=== PATIENT | female | born 1980 | race Caucasian/White ===

== ENCOUNTER 2024-05-16 13:49 | Emergency (ER) | payer SELFPAY ==
[2024-05-16 13:53] VITALS: BP 150/90; PULSE 79; RESP 16; TEMP 36.7; O2SAT 97; BMI 21.7
--- NOTE | 2024-05-16 14:05 | ED_ITS ---
Discharge Plan Disposition Patient Disposition: Home, Self-Care Referrals Follow up/Referrals: Stanislaw Barreto MD [Physician] - See instructions Provider,MD Prosper [Primary Care Provider] - See instructions Activity Restrictions/Add. Instructions Additional Instructions/Restrictions: At this time it was felt you are safe to be discharged home. If new or worsening symptoms please do not hesitate to return the emergency department. Please take antibiotics as prescribed and call and schedule an appointment with Dr. Barreto as soon as you are able to. Clinical Impressions Clinical Impression: Sinusitis Instructions Patient Instructions: DI for Sinusitis Discharge ED Provider: Trevor Mora General Adult HPI General Chief complaint: Upper Respiratory Infection Stated complaint: Nasal congestion smell dizziness nausea abd cramp Time Seen by Provider: 05/16/24 13:50 History of Present Illness HPI narrative: Patient is a 43-year-old female with past medical history of tooth extraction with subsequent fistula formation into her right maxillary sinus who presents emergency department for evaluation of right maxillary sinus pressure and pain. She feels generally unwell, onset was acute, over the last 1 and half weeks, generally feeling unwell as well as malodorous discharge, down the back of her throat through her nose. No chest pain or vision changes reported. Slight cough. She had a right maxillary tooth extracted approximately 2 months ago which caused the symptoms. No other acute complaints at this time. [facility] Disclaimer: The information contained in this section may have been updated after the patient was seen, as this information can be updated by other users. Social History Smoking Status: Never smoker alcohol intake: never current occupational status: employed Travel in the last 8 weeks: None ROS Obtained: Yes Systems reviewed as appropriate & no additional complaints except as documented Physical Exam General General appearance: alert and in no apparent distress Head Head exam: atraumatic and normocephalic Eye Eye exam: Present PERRL and EOMI ENT ENT exam: Present normal oropharynx (Slightly erythematous posterior oropharynx, uvula midline, no asymmetric swelling of the palatine tonsils.), mucous membranes moist and TM's normal bilaterally Neck Neck exam: Present normal inspection Chest Chest inspection: Present normal inspection and symmetric chest wall rise Respiratory Respiratory exam: Present normal lung sounds bilaterally; Absent respiratory distress, wheezes, stridor or accessory muscle use Cardiovascular Cardiovascular exam: Present regular rate and normal rhythm Abdominal Exam Abdominal exam: Present soft Extremities Exam Extremities exam: Present normal inspection Neurological Exam Neurological exam: Present alert, oriented X3 and CN II-XII intact; Absent motor sensory deficit Psychiatric Psychiatric exam: Present normal affect Skin Skin exam: Present warm and dry Medical Decision Making Jad Inquiry Pt receiving controlled substance: No Vital Signs: 05/16/24 13:53 Temperature 98.1 F Temperature Source Oral Pulse Rate [Right] 79 Respiratory Rate 16 Blood Pressure [Right Arm] 150/90 H Blood Pressure Mean [Right Arm] 110 02 Sat by Pulse Oximetry 97 Oxygen Delivery Method Room Air Medical Decision Narrative: In summary patient is a 43-year-old female past medical history described above who presents emergency department for evaluation of sinus pressure and generally feeling unwell with slight associated cough. Patient is hemodynamically stable nontoxic-appearing upon arrival, afebrile. She is clear to auscultation all lung nuñez, nontachycardic, no fever. With expected cough no further workup or imaging is indicated at this time. With the specter of facial pressure malodorous subjective drainage down the back of her throat it is possible that she has sinusitis. Given that his has been going on for greater than 10 days Augmentin is reasonable. She does not have a sinus tract into her mouth, has no facial plethora or limited range of motion that would be suspicious for tracking infection that would warrant imaging. Nonfocal neurologic exam. Differential includes sinusitis, viral respiratory infection, among others. Given this patient is appropriate for discharge without workup and will be treated empirically with Augmentin will be referred to ear nose and throat Dr. Barreto for continued evaluation. Critical Care Critical Care Time Critical Care Time: No
[2024-05-16 14:15] VITALS: BP 143/90; PULSE 81; RESP 16; TEMP 36.7; O2SAT 97
== END 2024-05-16 14:25 | disposition home or self-care (01) ==
LOC: ER 14:19
PROVIDERS: Emergency Provider Emergency Medicine
DX: J01.00 Acute maxillary sinusitis, unspecified (principal); R09.82 Postnasal drip; R05.9 Cough, unspecified
CPT/HCPCS: 99283

== ENCOUNTER 2024-09-07 11:20 | Emergency (ER) | payer BC, SELFPAY ==
[2024-09-07 11:36] VITALS: BP 153/97; PULSE 77; RESP 16; TEMP 36.7; O2SAT 98; BMI 23.6
--- NOTE | 2024-09-07 11:52 | EXP.UTC ---
Discharge Plan Disposition Patient Disposition: Home, Self-Care Condition: Good Prescriptions Prescriptions: New oseltamivir [Tamiflu] 75 mg capsule 75 mg PO DAILY 7 Days Qty: 7 0RF No Action amoxicillin-pot clavulanate 875-125 mg tablet 1 tab PO BID Qty: 20 0RF Referrals Follow up/Referrals: Provider,Referral, MD [Primary Care Provider] - See instructions Activity Restrictions/Add. Instructions Additional Instructions/Restrictions: *Monitor Temp, Over the counter Motrin or Tylenol as directed/as needed Tylenol every 4 hours and Motrin every 6 hours (as long as your family doctor has told you that you can take it) for fever or pain. and straight to ER if unable to lower temp less than 101.0 after medication given *Warm salt water gargles may help to soothe the throat *Throat Lozenges? *Warm fluids like tea with honey may help to soothe the throat? *Sleep elevated *Humidifier/Vaporizer Follow up IMMEDIATELY for new or worsening symptoms or no Noticeable improvement over the next 48-72 hours. 911 for difficulty breathing or swallowing Clinical Impressions Clinical Impression: Exposure to the flu Instructions Patient Instructions: DI for Influenza -- Adult, How to Avoid a Cold or Flu Print Language Print Language: German Discharge ED Provider: Keyanna Gilman [facility] [place] HPI General Stated complaint: flu exposure Mode of Arrival: Ambulatory Source of Information: Patient Limitations: No Limitations Time Seen by Provider: 09/07/24 11:52 Description of Symptoms (Recalled from Triage Doc. by RN): Patient reports being exposed to the flu. States she has body aches and that's all. HEENT Symptoms (Recalled from RN notes): No Resp Symptoms (Recalled from RN notes): No Skin Symptoms (Recalled from RN notes): No MS Symptoms (Recalled from RN notes): No Functional Status (Recalled from RN notes): wnl History of Present Illness Provider Complaint: Patient states that she has been exposed to flu by several people at work States she started having body aches, and chills so she came in to get checked and wanting to get the prophylactic tamiflu if possible due to known exposure Related Data Previous Rx's ?Medication ?Instructions ?Recorded amoxicillin 875 mg-potassium 1 tab PO BID sinusitis #20 tabs 05/16/24 clavulanate 125 mg tablet oseltamivir 75 mg capsule (Tamiflu) 75 mg PO DAILY 7 days #7 caps 09/07/24 Allergies Allergy/AdvReac Type Severity Reaction Status Date / Time ciprofloxacin [From Cipro] Allergy Verified 05/16/24 14:14 Worker's Comp Is this a Worker's Comp case?: No PFSH [facility] Disclaimer: The information contained in this section may have been updated after the patient was seen, as this information can be updated by other users. Social History (Updated 05/16/24 @ 14:14 by Trevor Mora MD) Smoking Status: Never smoker alcohol intake: never current occupational status: employed Travel in the last 8 weeks: None ROS Obtained: Yes All systems reviewed & no additional complaints except as documented and Yes Systems reviewed as appropriate & no additional complaints except as documented Constitutional Constitutional: Reports system reviewed and no additional complaints, except as documented, Reports as per HPI, Reports body ache and Reports chills ENT Ears, Nose, Mouth, and Throat: Reports system reviewed and no additional complaints, except as documented and Reports as per HPI Cardiovascular Cardiovascular: Reports system reviewed and no additional complaints, except as documented and Reports as per HPI Respiratory Respiratory: Reports system reviewed and no additional complaints, except as documented and Reports as per HPI Gastrointestinal Gastrointestingal: Reports system reviewed and no additional complaints, except as documented and as per HPI Physical Exam General General appearance: alert and in no apparent distress ENT ENT exam: Present mucous membranes moist Respiratory Respiratory exam: Present normal lung sounds bilaterally; Absent respiratory distress or wheezes Cardiovascular Cardiovascular exam: Present regular rate, normal rhythm and normal heart sounds Neurological Exam Neurological exam: Present alert, oriented X3 and normal gait Medical Decision Making Medical Records Screening: Per USPSTF and CDC recommendations, given the prevalence of disease in our region, it is our hospital?s policy to screen for HIV and viral Hepatitis for all patients aged 18 and over and those with ongoing risk factors. Jad Inquiry Pt receiving controlled substance: No Jad was queried for this patient: No Vital Signs: 09/07/24 11:36 Temperature 98.1 F Temperature Source Oral Pulse Rate [Radial] 77 Respiratory Rate 16 Blood Pressure [Right Arm] 153/97 H Blood Pressure Mean [Right Arm] 115 Blood Pressure Source [Right Arm] Automatic Cuff Blood Pressure Position [Right Arm] Sitting 02 Sat by Pulse Oximetry 98 Oxygen Delivery Method Room Air Lab Data Lab results reviewed: Yes I reviewed the patient's lab results.
[2024-09-07 12:03] LABS: UTC Influenza A Antigen Negative (Negative)
[2024-09-07 12:04] LABS: UTC Influenza B Antigen Negative (Negative)
[2024-09-07 12:12] VITALS: BP 153/97; PULSE 77; RESP 16; TEMP 36.7; O2SAT 98
== END 2024-09-07 12:13 | disposition home or self-care (01) ==
PROVIDERS: Emergency Provider Nurse Practitioner
DX: M79.10 Myalgia, unspecified site (principal)
CPT/HCPCS: 87804; 99213; G0381

== ENCOUNTER 2025-07-06 18:28 | Emergency (ER) | payer SELFPAY ==
--- NOTE | 2025-07-06 18:29 | ECG_ITS ---
APPROVED REPORT Exam: Resting ECG HR:84 bpm ECG Measurements Heart Rate 84 AXES OR 155 P 68 QRSd 101 QRS 64 QT 365 T 32 QTc 405 Conclusion Normal sinus rhythm without acute ST or T wave changes concerning for ischemia Electronically signed by : Mackenzie Aguilar, 07/07/2025 00:17:24
[2025-07-06 18:31] VITALS: BP 162/102; PULSE 86; PULSE 90; RESP 20; TEMP 36.9; O2SAT 98; BMI 20.9
--- NOTE | 2025-07-06 18:37 | XR_ITS ---
PROCEDURE INFORMATION: Exam: XR Chest Exam date and time: 07/06/2025 6:54 PM Age: 45 years old Clinical indication: Shortness of breath; Additional info: Short of breath TECHNIQUE: Imaging protocol: Radiologic exam of the chest. Views: 1 view. COMPARISON: No relevant prior studies available. FINDINGS: Lungs: Unremarkable. No consolidation. Pleural spaces: Unremarkable. No pleural effusion. No pneumothorax. Heart/Mediastinum: Unremarkable. No cardiomegaly. Bones/joints: Unremarkable. IMPRESSION: No acute findings.
--- NOTE | 2025-07-06 18:40 | ED_ITS ---
Discharge Plan Disposition Patient Disposition: Home, Self-Care Condition: Good Prescriptions Prescriptions: No Action amoxicillin-pot clavulanate 875-125 mg tablet 1 tab PO BID Qty: 30 0RF Referrals Follow up/Referrals: Provider,Referral, [Primary Care Provider, Medical] - See instructions Activity Restrictions/Add. Instructions Additional Instructions/Restrictions: Establish care with a primary care provider. Return to the emergency department if you have any significant chest pain, shortness of breath or any other symptoms that are concerning to you. Clinical Impressions Clinical Impression: Chest pain Print Language Print Language: Scottish Discharge ED Provider: Mackenzie Aguilar General Adult HPI <Brit Yan (ED), AIR BRAKE OPERATOR - Last Filed: 07/07/25 13:49> General Chief complaint: Chest Pain Stated complaint: chest pain Time Seen by Provider: 07/06/25 18:35 Mode of Arrival: Ambulatory Source of Information: Patient Description of Symptoms (Recalled from ER Triage Doc. by RN): pt reports having initia; chest pain on saturday that woke her up form her sleep. had another episode today @1800. got dizzy and said the pain radiated up into her neck and shoulder. takes no meds. History of Present Illness HPI narrative: 45-year-old female presents to the ED today for complaint of chest pain that started on Saturday and had another episode today. She says that the episode today took her breath and made her dizzy. She says it also radiated into her collarbone. Says that she occasionally sees black spots in her vision for a few seconds. She does have chest pain now but it is not as bad as it was earlier today and on Saturday. She was not doing any kind of strenuous work when it happened. She does complain of shortness of air both now and with each episode of chest pain. She is a 1 pack/day smoker and a drinker. She has no heart history that she is aware of although her mom had mitral valve prolapse and said that she may have that. She has had some nausea no vomiting and had diarrhea for couple days. Patient has not seen a PCP in years. She has lived here for 6 years and not seen a PCP since she has moved here. Related Data Previous Rx's ?Medication ?Instructions ?Recorded amoxicillin 875 mg-potassium 1 tab PO BID #30 tabs clavulanate 125 mg tablet Allergies Allergy/AdvReac Type Severity Reaction Status Date / Time ciprofloxacin (From Cipro) Allergy Verified 02/01/25 11:18 PFSH <Brit Yan (ED), AIR BRAKE OPERATOR - Last Filed: 07/07/25 13:49> PFS Disclaimer: The information contained in this section may have been updated after the patient was seen, as this information can be updated by other users. Medical History (Updated 07/06/25 @ 23:07 by Mackenzie Aguilar DO) Chronic eczematous otitis externa of both ears Recurrent maxillary sinusitis Surgical History H/O rhinoplasty Social History Smoking Status: Current every day smoker alcohol intake: never current occupational status: employed Travel in the last 8 weeks?: None Have you lived/traveled outside US in past 30 days?: No Contact w/someone who lives/traveled outside US past 30 days?: No Exposure to someone with infectious disease in past 14 days?: No Do you have a fever (greater than 100.4 F or 38 C)?: No Have you tested positive for COVID-19?: No Exposed to someone with COVID-19 in past 14 days?: No Do you have a sore throat?: No Do you have a cough?: No Do you have any weakness?: No Do you have any diarrhea?: No Are you experiencing any unusual bleeding?: No Do you have any muscle aches/pain?: No Do you have any abdominal pain?: No Are you experiencing loss of taste or smell?: No Other Medical History Have you received the Pneumonia Vaccine: No <Brit Yan (ED), AIR BRAKE OPERATOR - Last Filed: 07/07/25 13:49> ROS Obtained: Yes Systems reviewed as appropriate & no additional complaints except as documented Constitutional Constitutional: Reports as per HPI Physical Exam <Brit Yan (ED), AIR BRAKE OPERATOR - Last Filed: 07/07/25 13:49> General General appearance: alert and anxious Head Head exam: normocephalic Eye Eye exam: Present PERRL ENT ENT exam: Present mucous membranes moist Neck Neck exam: Present trachea midline Respiratory Respiratory exam: Present normal lung sounds bilaterally Cardiovascular Cardiovascular exam: Present regular rate, normal rhythm, normal heart sounds, +S1 and +S2 Abdominal Exam Abdominal exam: Present soft and normal bowel sounds Extremities Exam Extremities exam: Present full ROM Neurological Exam Neurological exam: Present alert and oriented X3 Psychiatric Psychiatric exam: Present anxious Skin Skin exam: Present warm and dry Medical Decision Making <Brit Yan (ED), AIR BRAKE OPERATOR - Last Filed: 07/07/25 13:49> Medical Records Screening: Per USPSTF and CDC recommendations, given the prevalence of disease in our region, it is our hospital?s policy to screen for HIV and viral Hepatitis for all patients aged 18 and over and those with ongoing risk factors. Jad Inquiry Pt receiving controlled substance: No Jad was queried for this patient: No Vital Signs: 07/06/25 18:31 07/06/25 18:31 07/06/25 19:30 Temperature 98.4 F Temperature Source Oral Pulse Rate 86 77 Pulse Rate [Right] 90 Respiratory Rate 20 15 Blood Pressure 162/102 H 132/93 H Blood Pressure [Right Arm] 162/102 H Blood Pressure Mean [Right Arm] 122 Blood Pressure Position 02 Sat by Pulse Oximetry 98 98 97 Oxygen Delivery Method Room Air 07/06/25 22:00 07/06/25 22:45 07/06/25 23:16 Temperature 97.8 F Temperature Source Oral Pulse Rate 75 64 64 Pulse Rate [Right] Respiratory Rate 13 13 16 Blood Pressure 130/68 130/68 Blood Pressure [Right Arm] Blood Pressure Mean [Right Arm] Blood Pressure Position Supine 02 Sat by Pulse Oximetry 97 96 Oxygen Delivery Method Room Air Lab Data Lab Results 07/06/25 18:40: WBC 6.3, RBC 3.99 L, Hgb 13.4 L, Hct 39.4 L, MCV 98.7 H, MCH 33.6 H, MCHC 34.0, RDW 12.8, Plt Count 282, MPV 9.3, Neut % (Auto) 54.6, Lymph % (Auto) 31.4, Tyrrell % (Auto) 10.5 H, Eos % (Auto) 2.2, Baso % (Auto) 1.0, Neut # (Auto) 3.5, Lymph # (Auto) 2.0, Tyrrell # (Auto) 0.7, Eos # (Auto) 0.1, Baso # (Auto) 0.1, D-Dimer 0.62 H, Sodium 134 L, Potassium 3.8, Chloride 100, Carbon Dioxide 26, Anion Gap 11.8, BUN 11, Creatinine 0.80, Estimated Creat Clear 118, Estimated GFR 106, Est GFR ( Amer) 128, Glucose 85, Calcium 9.5, Magnesium 2.1, Total Bilirubin 0.5, AST 74 H, ALT 55, Alkaline Phosphatase 103, Troponin I < 0.01, Total Protein 8.3 H, Albumin 4.3, Globulin 4.0 H, Albumin/Globulin Ratio 1.1, Lipase 102, HCV Ab VINCENT w/Rflx PCR Qn Negative, HIV Ag/Ab Combo Qual Negative 07/06/25 21:40: Troponin I < 0.01 07/06/25 18:40 07/06/25 18:40 Orders (Tests/Meds): ED MEDICATIONS Discontinued Medications Generic Name Dose Route Start Last Admin Trade Name Freq PRN Reason Stop Dose Admin Aspirin 325 mg 07/06/25 18:44 07/06/25 18:47 Aspirin 325mg Tablet PO 07/06/25 18:45 325 mg ONCE ONE Administration Famotidine 20 mg 07/06/25 18:36 07/06/25 18:45 Famotidine 20mg/2ml Vial IV 07/06/25 18:37 20 mg ONCE ONE Administration Iopamidol 80 ml 07/06/25 20:01 07/06/25 20:02 Iopamidol-370 (76%);100ml Bottle IV 07/06/25 20:02 80 ml ONCE ONE Administration Sodium Chloride 8 ml 07/06/25 18:36 Sodium Chloride 0.9% 10ml Vial IV 08/05/25 18:35 NEEDED PRN dilute pepcid Sodium Chloride 50 ml 07/06/25 20:01 07/06/25 20:02 0.9 % Sodium Chloride 50 Ml Vial IV 07/06/25 20:02 50 ml ONCE ONE Administration Sodium Chloride 10 ml 07/06/25 20:01 07/06/25 20:02 Sodium Chloride 0.9% 10ml Syr (Rad Only) IV 08/05/25 20:00 10 ml NEEDED PRN Administration Maintain IV Site ORDERS Category Date Time Status CTA Chest [CT angio chest PE protocol] Stat Cat Scan 07/06/25 19:49 Completed Chest XR -- portable [XR chest portable] Stat Exams 07/06/25 18:37 Completed CBC [Complete Blood Count Auto Diff] Stat Lab 07/06/25 18:40 Completed Comprehensive Metabolic Panel Stat Lab 07/06/25 18:40 Completed D-Dimer Stat Lab 07/06/25 18:40 Completed HIV Combo Stat Lab 07/06/25 18:40 Completed Hepatitis C Ab Qual. W/ RFX Stat Lab 07/06/25 18:40 Completed Lipase Stat Lab 07/06/25 18:40 Completed Magnesium Stat Lab 07/06/25 18:40 Completed Trop I [Troponin I] Stat Lab 07/06/25 18:40 Completed Troponin I Q3H Lab 07/06/25 21:40 Completed HEART Score History (anamnesis): Slightly suspicious ECG: Normal Age: <45 years Risk factors: 1-2 risk factors Troponin: </= normal limit HEART Score: 1 Medical Decision Narrative: patient is a 45-year-old female presenting to the emergency department for evaluation of chest pain and shortness of breath for the last couple days. Patient is hemodynamically stable and nontoxic-appearing upon arrival, afebrile. Differential diagnosis includes chest pain, ACS, pancreatitis, reflux, among others. Workup will be conducted with hematologic labs, specific imaging. Initial inventions include analgesics. Initial workup reviewed by me hematologic labs are remarkable for elevated D- dimer at 0.62. So I did order a CTA which was negative for PE. Formal imaging read remarkable for no PE. We are awaiting her second troponin to be drawn. Troponin has been drawn updated patient on results so far. Dr. Aguilar has been updated on patient and she will overtake patient as I am leaving. <Mackenzie Aguilar, DO - Last Filed: 07/08/25 15:57> Vital Signs: 07/06/25 18:31 07/06/25 18:31 07/06/25 19:30 Temperature 98.4 F Temperature Source Oral Pulse Rate 86 77 Pulse Rate [Right] 90 Respiratory Rate 20 15 Blood Pressure 162/102 H 132/93 H Blood Pressure [Right Arm] 162/102 H Blood Pressure Mean [Right Arm] 122 Blood Pressure Position 02 Sat by Pulse Oximetry 98 98 97 Oxygen Delivery Method Room Air 07/06/25 22:00 07/06/25 22:45 07/06/25 23:16 Temperature 97.8 F Temperature Source Oral Pulse Rate 75 64 64 Pulse Rate [Right] Respiratory Rate 13 13 16 Blood Pressure 130/68 130/68 Blood Pressure [Right Arm] Blood Pressure Mean [Right Arm] Blood Pressure Position Supine 02 Sat by Pulse Oximetry 97 96 Oxygen Delivery Method Room Air Lab Data Lab Results 07/06/25 18:40: WBC 6.3, RBC 3.99 L, Hgb 13.4 L, Hct 39.4 L, MCV 98.7 H, MCH 33.6 H, MCHC 34.0, RDW 12.8, Plt Count 282, MPV 9.3, Neut % (Auto) 54.6, Lymph % (Auto) 31.4, Tyrrell % (Auto) 10.5 H, Eos % (Auto) 2.2, Baso % (Auto) 1.0, Neut # (Auto) 3.5, Lymph # (Auto) 2.0, Tyrrell # (Auto) 0.7, Eos # (Auto) 0.1, Baso # (Auto) 0.1, D-Dimer 0.62 H, Sodium 134 L, Potassium 3.8, Chloride 100, Carbon Dioxide 26, Anion Gap 11.8, BUN 11, Creatinine 0.80, Estimated Creat Clear 118, Estimated GFR 106, Est GFR ( Amer) 128, Glucose 85, Calcium 9.5, Magnesium 2.1, Total Bilirubin 0.5, AST 74 H, ALT 55, Alkaline Phosphatase 103, Troponin I < 0.01, Total Protein 8.3 H, Albumin 4.3, Globulin 4.0 H, Albumin/Globulin Ratio 1.1, Lipase 102, HCV Ab VINCENT w/Rflx PCR Qn Negative, HIV Ag/Ab Combo Qual Negative 07/06/25 21:40: Troponin I < 0.01 Orders (Tests/Meds): ED MEDICATIONS Discontinued Medications Generic Name Dose Route Start Last Admin Trade Name Freq PRN Reason Stop Dose Admin Aspirin 325 mg 07/06/25 18:44 07/06/25 18:47 Aspirin 325mg Tablet PO 07/06/25 18:45 325 mg ONCE ONE Administration Famotidine 20 mg 07/06/25 18:36 07/06/25 18:45 Famotidine 20mg/2ml Vial IV 07/06/25 18:37 20 mg ONCE ONE Administration Iopamidol 80 ml 07/06/25 20:01 08/05/25 20:02 Iopamidol-370 (76%);100ml Bottle IV 07/06/25 20:02 80 ml ONCE ONE Administration Sodium Chloride 8 ml 07/06/25 18:36 Sodium Chloride 0.9% 10ml Vial IV 08/05/25 18:35 NEEDED PRN dilute pepcid Sodium Chloride 50 ml 07/06/25 20:01 07/06/25 20:02 0.9 % Sodium Chloride 50 Ml Vial IV 07/06/25 20:02 50 ml ONCE ONE Administration Sodium Chloride 10 ml 07/06/25 20:01 07/06/25 20:02 Sodium Chloride 0.9% 10ml Syr (Rad Only) IV 08/05/25 20:00 10 ml NEEDED PRN Administration Maintain IV Site ORDERS Category Date Time Status CTA Chest [CT angio chest PE protocol] Stat Cat Scan 07/06/25 19:49 Completed Chest XR -- portable [XR chest portable] Stat Exams 07/06/25 18:37 Completed CBC [Complete Blood Count Auto Diff] Stat Lab 07/06/25 18:40 Completed Comprehensive Metabolic Panel Stat Lab 07/06/25 18:40 Completed D-Dimer Stat Lab 07/06/25 18:40 Completed HIV Combo Stat Lab 07/06/25 18:40 Completed Hepatitis C Ab Qual. W/ RFX Stat Lab 07/06/25 18:40 Completed Lipase Stat Lab 07/06/25 18:40 Completed Magnesium Stat Lab 07/06/25 18:40 Completed Trop I [Troponin I] Stat Lab 07/06/25 18:40 Completed Troponin I Q3H Lab 07/06/25 21:40 Completed HEART Score HEART Score: 1 Medical Decision Narrative: patient is a 45-year-old female presenting to the emergency department for evaluation of chest pain and shortness of breath for the last couple days. Patient is hemodynamically stable and nontoxic-appearing upon arrival, afebrile. Differential diagnosis includes chest pain, ACS, pancreatitis, reflux, among others. Workup will be conducted with hematologic labs, specific imaging. Initial inventions include analgesics. Initial workup reviewed by me hematologic labs are remarkable for elevated D- dimer at 0.62. So I did order a CTA which was negative for PE. Formal imaging read remarkable for no PE. We are awaiting her second troponin to be drawn. Troponin has been drawn updated patient on results so far. Dr. Aguilar has been updated on patient and she will overtake patient as I am leaving. Mackenzie Aguilar, DO I assumed care of this patient at 2200. Patient's second troponin was less than 0.01. On reassessment, patient had no chest pain. At this time, I felt that patient was stable and appropriate for discharge home. Return precautions were discussed. Critical Care <Brit Yan (ED), AIR BRAKE OPERATOR - Last Filed: 07/07/25 13:49> Critical Care Time Critical Care Time: No
[2025-07-06] MEDS: FAMOTIDINE 20MG/2ML VIAL 20 MG IV (18:45)
[2025-07-06] MEDS: ASPIRIN 325MG TABLET 325 MG PO (18:47)
[2025-07-06 18:49] LABS: Hematocrit 39.4 % (42.0-52.0); Hemoglobin 13.4 g/dL (14.1-18.0); Immature Granulocytes % 0.3 %; Mean Corpuscular HGB Conc 34.0 g/dL (31.8-35.4); Mean Corpuscular Hemoglobin 33.6 pg (27.0-31.2); Mean Corpuscular Volume 98.7 fl (80-94); Nucleated Red Blood Cells % 0 %; Platelet Count 282 K/mm3 (142-424); Red Blood Count 3.99 M/mm3 (4.60-6.20); Red Cell Distribution Width-SD 46.6 fL; White Blood Count 6.3 K/mm3 (4.8-10.8)
[2025-07-06 19:09] LABS: Albumin Level 4.3 g/dl (3.5-5.0); Chloride 100 mmol/L (98-107); Potassium 3.8 mmoL/L (3.5-5.1); Sodium 134 mmol/L (136-145)
[2025-07-06 19:11] LABS: Blood Urea Nitrogen 11 mg/dl (9-20); Creatinine Clearance Estimated 118 mL/min (50-200); Creatinine,Serum 0.80 mg/dl (0.66-1.25); Estimated Glomerular Filt Rate 106 ml/min (>60); GFR (African American) 128 ML/MIN (>60)
[2025-07-06 19:12] LABS: Alanine Aminotransferase 55 U/L (12-78); Albumin/Globulin Ratio 1.1 (1.1-1.8); Alkaline Phosphatase 103 U/L (38-126); Anion Gap 11.8 mEq/L (5-15); Aspartate Amino Transferase 74 U/L (17-59); Bilirubin,Total 0.5 mg/dl (0.2-1.3); Calcium 9.5 mg/dl (8.4-10.2); Carbon Dioxide 26 mmol/L (22.0-30.0); Globulin 4.0 g/dL (1.3-3.2); Glucose 85 mg/dl (74-100); Lipase 102 U/L (23-300); Magnesium 2.1 mg/dl (1.6-2.3); Total Protein,Serum 8.3 g/dl (6.3-8.2)
[2025-07-06 19:17] LABS: D-Dimer 0.62 ug/mL (0.0-0.5)
[2025-07-06 19:30] VITALS: BP 132/93; PULSE 77; RESP 15; O2SAT 97
[2025-07-06 19:45] LABS: Troponin I < 0.01 ng/ml (0.00-0.034)
--- NOTE | 2025-07-06 19:49 | CT_ITS ---
PROCEDURE INFORMATION: Exam: CTA Chest Without And With Contrast Exam date and time: 07/06/2025 7:59 PM Age: 45 years old Clinical indication: Shortness of breath TECHNIQUE: Imaging protocol: Computed tomographic angiography of the chest without and with contrast. Exam focused on the arteries. 3D rendering (Not supervised by radiologist): MIP and/or 3D reconstructed images were created by the technologist. Radiation optimization: All CT scans at this facility use at least one of these dose optimization techniques: automated exposure control; mA and/or kV adjustment per patient size (includes targeted exams where dose is matched to clinical indication); or iterative reconstruction. Contrast material: ISOVUE; Contrast volume: 80 ml; Contrast route: INTRAVENOUS (IV); COMPARISON: CR XR CHEST PORTABLE 07/06/2025 6:54 PM FINDINGS: Pulmonary arteries: No CT angiography evidence of pulmonary embolism. Aorta: Unremarkable. No aortic aneurysm. No aortic dissection. Lungs: Left lower lobe calcified nodule compatible with prior granulomatous process. Pleural spaces: Unremarkable. No pneumothorax. No pleural effusion. Heart: Unremarkable. No cardiomegaly. No pericardial effusion. Lymph nodes: Left hilar and subcarinal calcified nodes compatible with prior granulomatous process. Bones/joints: Unremarkable. No acute fracture. Soft tissues: Unremarkable. IMPRESSION: No CT angiography evidence of pulmonary embolism.
[2025-07-06 20:00] LABS: Hepatitis C Ab Qual. W/ RFX NEGATIVE (Negative)
[2025-07-06] MEDS: IOPAMIDOL-370 (76%);100ML BOTTLE 80 ML IV (20:02)
[2025-07-06] MEDS: 0.9 % SODIUM CHLORIDE 50 ML VIAL IV (20:02)
[2025-07-06] MEDS: SODIUM CHLORIDE 0.9% 10ML SYR (RAD ONLY) 10 ML IV (20:02)
[2025-07-06 22:00] VITALS: PULSE 75; RESP 13; O2SAT 97
[2025-07-06 22:39] LABS: Troponin I < 0.01 ng/ml (0.00-0.034)
[2025-07-06 22:45] VITALS: BP 130/68; PULSE 64; RESP 13; O2SAT 96
[2025-07-06 23:16] VITALS: BP 130/68; PULSE 64; RESP 16; TEMP 36.6; O2SAT 98
== END 2025-07-06 23:17 | disposition home or self-care (01) ==
PROVIDERS: Nurse Practitioner; Emergency Provider Student in an Organized Health Care Education/Training Program
DX: R07.89 Other chest pain (principal); R42 Dizziness and giddiness; R11.0 Nausea; R19.7 Diarrhea, unspecified; F17.210 Nicotine dependence, cigarettes, uncomplicated
CPT/HCPCS: 71045; 71275; 80053; 83690; 83735; 84484; 85025; 85378; 86803; 87389; 93005; 96374; 99285; Q9967